=== PATIENT | female | born 1955 | race Caucasian/White ===

== ENCOUNTER 2021-05-08 12:48 | Emergency (ER) | payer MEDICARE, BC ==
--- NOTE | 2021-05-08 13:10 | EDM.PDOC ---
ED HPI GENERAL MEDICAL PROBLEM - General Chief Complaint: Respiratory Problem Stated Complaint: COUGH Time Seen by Provider: 05/08/21 13:08 - History of Present Illness INITIAL COMMENTS - FREE TEXT/NARRATIVE: 65-year-old female presents the emergency room with a cough. This cough has been present for the last 3 or 4 weeks. She thought she got it from her spouse his cough got better but now he started to cough again but her c ough is been pretty persistent perhaps mildly getting worse. Patient does smoke about half a pack of cigarettes a day her cough is mostly dry but if she coughs several times she will actually bring up a little bit of sputum. She is not had any fevers or chills. The patient has a inhaler but has not been using it they are not certain but believes it is probably albuterol. Patient's never been d iagnosed with any underlying lung disease. - Related Data Allergies Allergy/AdvReac Type Severity Reaction Status Date / Time codeine Allergy Severe Vomiting Verified 05/08/21 13:00 zinc Allergy Severe Vomiting Uncoded 05/08/21 13:00 Home Meds: Home Meds Losartan [Cozaar] 0 mg PO DAILY 05/08/21 [History] Metoprolol Succinate [Toprol XL] 25 mg PO DAILY 05/08/21 [History] atorvaSTATin [Lipitor] 0 mg PO BEDTIME 05/08/21 [History] Past Medical History Cardiovascular History: Reports: High Cholesterol, Hypertension OUTSIDE SALES ACCOUNT REPRESENTATIVE History: Reports: Other (See Below) Other OUTSIDE SALES ACCOUNT REPRESENTATIVE History: cyst and ovary removed Social & Family History - Tobacco Use Tobacco Use Status *Q: Current Every Day Tobacco User Years of Tobacco use: 36 Packs/Tins Daily: 0.4 - Caffeine Use Caffeine Use: Reports: Coffee, Soda - Recreational Drug Use Recreational Drug Use: No ED ROS GENERAL - Review of Systems Review Of Systems: See Below Constitutional: Reports: No Symptoms HEENT: Reports: No Symptoms Respiratory: Reports: Cough. Denies: Shortness of Breath Cardiovascular: Reports: No Symptoms Endocrine: Reports: No Symptoms GI/Abdominal: Reports: No Symptoms : Reports: No Symptoms Musculoskeletal: Reports: No Symptoms Skin: Reports: No Symptoms Neurological: Reports: No Symptoms ED EXAM, GENERAL - Physical Exam Exam: See Below Exam Limited By: No Limitations General Appearance: Alert, No Apparent Distress Eye Exam: Bilateral Eye: Normal Inspection Ears: Normal External Exam, Normal Canal, Hearing Grossly Normal, Normal TMs Nose: Normal Inspection, Normal Mucosa, No Blood, Other (Sinuses nontender with percussion) Throat/Mouth: Normal Inspection, Normal Lips, Normal Teeth, Normal Gums, Normal Oropharynx, Normal Voice, No Airway Compromise Head: Atraumatic, Normocephalic Neck: Normal Inspection, Supple, Non-Tender. No: Lymphadenopathy (L), Lymphadenopathy (R) Respiratory/Chest: No Respiratory Distress, Lungs Clear, Decreased Breath Sounds (Breath sounds mildly diminished). No: Crackles, Rales, Rhonchi, Wheezing Cardiovascular: Normal Peripheral Pulses, Regular Rate, Rhythm, No Edema Course - Vital Signs Last Recorded V/S: Last Vital Signs Temp 36.7 C 05/08/21 13:06 Pulse 57 L 05/08/21 13:06 Resp 20 05/08/21 13:06 BP 169/82 H 05/08/21 13:06 Pulse Ox 98 05/08/21 13:06 - Orders/Labs/Meds Orders: Active Orders 24 hr Category Date Time Status RT Post Treatment Assessment [RC] Click to Edit Care 05/08/21 13:23 Active RT Pre-Treatment Assessment [RC] Click to Edit Care 05/08/21 13:23 Active Chest 2V [CR] Stat Exams 05/08/21 13:22 Taken Meds: Medications Discontinued Medications Generic Name Dose Route Start Last Admin Trade Name Cashq PRN Reason Stop Dose Admin Albuterol 0 gm 05/08/21 13:22 05/08/21 13:44 Albuterol 6.7 Gm Inhaler INH 05/08/21 13:23 2 puff ONETIME ONE Administration - Re-Assessments/Exams Free Text/Narrative Re-Assessment/Exam: 05/08/21 14:32 Chest x-ray looks like she is somewhat hyperinflated. She is given an albuterol MDI she has not coughed since she is use this but time will tell. I do not believe antibiotics are in her best interest at this point. I have urged her to quit smoking. She is to use the albuterol MDI 2 puffs every 4 hours while awake for upper airway congestion I recommended saline irrigation or [place] pot. Departure - Departure Time of Disposition: 14:33 Disposition: Home, Self-Care 01 Clinical Impression: Bronchitis - Discharge Information Referrals: PCP,Not In Area [Primary Care Provider] - Forms: ED Department Discharge Additional Instructions: Return to the emergency room with any questions problems or concerning symptoms. Please quit smoking. You have been started on albuterol metered-dose inhaler with a spacer use 2 puffs every 4 hours while awake with see if this helps over the long-term. With your upper airway congestion use the Cathryn pot or preferably the sinus non profit director as we discussed 2-3 times a day usually works favorably. Follow-up with your regular healthcare provider in 1 week if needed. Sepsis Event Note (ED) - Evaluation Sepsis Screening Result: No Definite Risk - Focused Exam Vital Signs: Vital Signs Temp Pulse Resp BP Pulse Ox 05/08/21 13:06 36.7 C 57 L 20 169/82 H 98 - My Orders Last 24 Hours: My Active Orders 05/08/21 13:22 Chest 2V [CR] Stat 05/08/21 13:23 RT Post Treatment Assessment [RC] Click to Edit RT Pre-Treatment Assessment [RC] Click to Edit - Assessment/Plan Last 24 Hours: My Active Orders 05/08/21 13:22 Chest 2V [CR] Stat 05/08/21 13:23 RT Post Treatment Assessment [RC] Click to Edit RT Pre-Treatment Assessment [RC] Click to Edit
[2021-05-08] MEDS ORDERED: Albuterol 6.7 GM Inhaler INH ONE (13:22)
--- NOTE | 2021-05-08 15:39 | CR ---
Chest: 2 views of the chest were obtained. Comparison: Prior chest x-ray of 10/13/12. Heart size and mediastinum are within normal limits. Lungs are clear with no acute parenchymal change. Minimal scoliosis is noted within the spine. No acute osseous abnormality is seen. Impression: 1. Nothing acute is seen on 2 view chest x-ray. Diagnostic code #2
== END 2021-05-08 14:45 | disposition home or self-care (01) ==
LOC: JD.ED 12:48
DX: J40 Bronchitis, not specified as acute or chronic (principal); E78.00 Pure hypercholesterolemia, unspecified; I10 Essential (primary) hypertension; Z72.0 Tobacco use; Z88.5 Allergy status to narcotic agent; Z88.8 Allergy status to other drugs, medicaments and biological substances; Z79.899 Other long term (current) drug therapy
CPT/HCPCS: 71046; 94640; 99283; A9270